=== PATIENT | male | born 1980 | race Caucasian/White ===

== ENCOUNTER → 2018-04-02 | Outpatient (CLI) | payer OTHER ==
[~2018-04-02] MED LIST: GADOBENATE DIMEGLUMINE 1 ML IV ONE; IBUPROFEN; IOPAMIDOL 300 MG/ML 15ML VIAL IT ONE; IOPAMIDOL 300MG/ML 50ML INFUS..BTL IV ONE; LIDOCAINE HCL 2% LOCAL 20 ML VIAL ONE; XYZAL; Z.0.MELOXICAM15 MG PO
--- NOTE | 2018-04-02 11:36 | Diagnostic Imaging Report ---
TECHNIQUE: Magnetic resonance arthrogram of the RIGHT WRIST was performed after injected contrast, on a 1.5 ho magnet. HISTORY: Pain, evaluate for scapholunate ligament tear COMPARISON: None available. FINDINGS: Bone and bone marrow: No focal or infiltrative bone marrow replacing abnormality. No acute fracture or osteonecrosis. The osseous alignment is within normal limits. Joints: Fluid within the joints is within physiologic limits. The joint spaces are maintained. The lunate is dorsally rotated. Ligaments: Scapholunate: Complete tear of the scapholunate ligament with widening and disassociation. Lunotriquetral: Intact Triangular fibrocartilage complex: Intact Extrinsic ligaments: Intact Tendons: Fluid around the radial sided extensor tendon secondary to the injection. Carpal tunnel: The median nerve is within normal limits. Other soft tissues: Otherwise, unremarkable. IMPRESSION: Scapholunate ligament complete tear with findings of dorsal intercalated segment instability. Correlate with lateral wrist x-ray. Signed by: Dr. Sabino Schmid M.D. on 04/02/2018 11:32 AM
--- NOTE | 2018-04-02 12:53 | Diagnostic Imaging Report ---
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 Blood pressure was monitored at 5 minute intervals. Additional Medications: Lidocaine 1% for local anesthesia Fluoroscopy time: Less than 1 minute Contrast used: 0.5 cc Isovue-300, 3 cc mixture of 0.1 cc gadolinium and 10 cc sterile saline Estimated blood loss: Minimal Specimens: None Implants: None DISCUSSION: Informed consent was obtained and documented in the medical record. The patient was placed in the sitting position with the right arm on the angiographic table. The arm was present 8, and the wrist was flexed over a rolled towel with slight ulnar deviation. The dorsal surface of the wrist was then prepped and draped in the standard sterile fashion. Under fluoroscopy a suitable percutaneous approach to the radio-scaphoid interval was identified and the skin was marked. 1% lidocaine was infiltrated into the skin and subcutaneous tissues for local anesthesia. Then under intermittent fluoroscopic guidance a 25-gauge needle was advanced into the radioscaphoid interval. Intra-articular location was confirmed by injection of a small amount of iodinated contrast. Subsequently, a total of 3 cc of a mixture of gadolinium contrast and sterile saline was slowly injected into the joint. The needle was removed and a sterile dressing was applied. IMPRESSION: Successful fluoroscopic guidance for intra-articular injection of gadolinium contrast in preparation for MR arthrography of the right wrist. Signed by: Dr. Rishi Aguilar M.D. on 04/02/2018 12:49 PM
== END ==
LOC: DX 08:39
PROVIDERS: ATTEND Orthopaedic Surgery
DX: M25.531 Pain in right wrist (principal); S63.521A Sprain of radiocarpal joint of right wrist, initial encounter
CPT/HCPCS: 25246; 73115; 73222; Q9967 ×2; J2001